=== PATIENT | male | born 1940 | race Caucasian/White ===

== ENCOUNTER 2019-06-12 05:44 | Inpatient (IN) | payer MEDICARE, SELFPAY ==
[2019-06-04 14:00] VITALS: BMI 27.8
[2019-06-12] VITALS (21 sets, daily range): BP systolic 127–155; BP diastolic 66–86; PULSE 79–95; RESP 9–19; TEMP 36.1–37.1; O2SAT 93–100; BMI 27.1
--- NOTE | 2019-06-12 | DI.RAD.S_ITS ---
PROCEDURE: XR CERVICAL SPINE 2V OR 3V INDICATIONS: C3-4, C4-5, C5-6. C6-7 anterior discectomy, ant/post fusio TECHNIQUE: 2 postoperative view(s) of the cervical spine were acquired. COMPARISON: SNO Outside Film, MR, MR CERVICAL SPINE WITHOUT CONTRAST, 03/01/2019, 13:00. SNO Outside Film, CR, XR CERVICAL SPINE 2 OR 3 VIEWS, 02/20/2019, 12:30. FINDINGS: Bones: Postoperative imaging allows best visualization on the lateral view. Anterior cervical fixation fixation devices are evident placed at C3-4, C4-5, C5-6, and C6-7. Facet joint posterior bilateral fixation devices have been placed also at these 4 intervening levels, establishing normal alignment immediately postoperatively. Soft tissues: No prevertebral soft tissue swelling. IMPRESSION: Normal alignment established postoperatively. Both anterior and posterior fixation devices have been placed in expected position from C3-4 through C6-7. Dictated by: Shailesh Minor M.D. on 06/13/2019 at 9:45 Approved by: Shailesh Minor M.D. on 06/13/2019 at 9:48
[2019-06-12] MEDS: LACTATED RINGERS 1,000 ML 42 ML IV ×3 (07:09→13:27)
--- NOTE | 2019-06-12 07:21 | PM.PREOP ---
Pre-operative Note Interval Note History & Physical reviewed/Exam performed by Physician: Yes Changes to H&P: No
[2019-06-12] MEDS: CEFAZOLIN 2 GM/100 ML FROZ.PIGGY IV ×3 (07:55→23:53)
[2019-06-12] MEDS: ACETAMINOPHEN IV 1,000 MG/100 ML VIAL 400 MG IV (08:30)
[2019-06-12] MEDS: SODIUM CHLORIDE 0.9% 1,000 ML, GENTAMICIN 80 MG IRR (08:43)
--- NOTE | 2019-06-12 08:51 | SUR.OPER ---
Prone on padded OR bed, head in foam head support, gel chest rolls, gel pad under knees, pillow under lower legs, toes free of pressure, arms secured at sides with draw sheet. Tape from shoulders to feet. Safety belt at thigh.
--- NOTE | 2019-06-12 08:52 | SUR.OPER ---
Supine on padded OR bed, head on donut, vertical towel roll between scapulae, arm padded and tucked at side, legs uncrossed, safety belt at thigh, tape over blanket over lower legs .
[2019-06-12] MEDS: THROMBIN (RECOMBINANT) 5,000 UNIT VIAL 5000 UNIT TOP (09:04)
--- NOTE | 2019-06-12 12:04 | PM.OP.1 ---
Operative Date/Time/Diagnoses Date of procedure: 06/12/19 Time of procedure: 12:04 Pre-op diagnosis: Cervical stenosis with myelopathy Post-op diagnosis: same Procedure & Clinicians Procedure: C3-4, C4-5, C5-6, C6-7 ACDF with cages C3-4, C4-5, C5-6, C6-7 instrumented posterior fusion Iliac crest bone graft Use of microscope Same procedure as scheduled: Yes Indications: [age] year old male with intractable pain from cervical stenosis. They had failed conservative management and requested operative intervention. Risks and benefits of surgery were discussed and appropriate consents were obtained. Surgeon: Dilshad Hammond Regional Sales Manager: Margaret Fox Anesthesia Type: General Operative Notes Findings: None Closure Type: primary Specimen(s): none sent Prosthetic devices, grafts, tissues, transplants, or devices: DTrax posterior Zachary YOLY-C anterior Applied: catheter Estimated Blood Loss (mL): 10 Procedure in detail: The patient was brought to the operating room and intubated on the stretcher. Time-out was performed. There were then rolled over to the well-padded prone position on chest rolls. Two views of fluoroscopy were taken to confirm our positioning. The neck was then prepped and draped in the standard sterile fashion. Preoperative antibiotics were given. Using fluoroscopy, we localized for planned incisions. Four 8 mm horizontal incisions were made over the lateral masses approximately 2 fingers below our planned surgical sites. We then spread down and opened up the fascia. Then percutaneously placed our Steinmann pin through the soft tissue into the facet joint at C3-4 under fluoroscopic visualization. We used the reamer to decorticate the lateral masses compromising the facet. A trocar was placed over the Steinmann pin into the facet and then the pin was removed. We used a rasp to decorticate the facet joint itself. We then filled the DTrax cage with Primax bone graft and impacted it into the facet joint at C3-4 under fluoroscopic guidance. We then took the lateral mass screw and placed it through the cage and then into the lateral mass for the posterior screw fixation. The senior cyber intelligence analyst was removed and we packed more bone graft down the trocar over the lateral masses. This was done bilaterally. This completed the instrumented posterior fusion at C3-4. We then went to the next levels at C4-5, C5-6, and C6-7. The same procedure was performed with preparation, placement of the cage with bone graft, and placement of the screw for bilateral instrumented posterior fusion at C4-5, C5-6, and C6-7. The wounds were irrigated. The skin was closed and a sterile dressing placed. The patient was then rolled over to the table in the supine position and positioned for the anterior surgery. The arms were tucked and a shoulder roll was placed. The neck and left iliac crest were prepped and draped in the standard sterile fashion. A 3 cm oblique incision was made on the left side of the neck along the skin fold. Bovie was used to split the platysma. We then bluntly dissected a standard anterolateral approach to the precervical fascia. A marker was placed and x-ray taken to confirm our positioning. We then used the Bovie to the subperiosteally lift up the longus colli muscles. Self-retaining retractors were placed. We then placed [place] pins and distracted across the C6-7 disc space. We brought in the microscope. A complete anterior discectomy was performed at C6-7 using a combination of scalpel, curettes, pituitaries, and Kerrison rongeurs. The bur was used to take down the posterior osteophytes as well as decorticate the disc space. We then released the PLL and used the Kerrison to remove any further posterior osteophytes and disc material. At the end a nerve hook could be swept cephalad caudally and out the neural foramen and everything was open. We trialed for our cages. A small stab incision was made over the left iliac crest. We placed a Jamshidi aspiration needle into the iliac crest and aspirated several mL of bone marrow graft. We then took our Zachary LDR YOLY-C cage and packed it with Osteocell, and mixed in the bone marrow aspirate. The cage was then placed into the disc space under fluoroscopic guidance. The 2 locking plates were placed through the cage for fixation. This completed the ACDF at C6-7. We then went to the next levels sequentially from C5-6, C4-5, then C3-4. Again a complete diskectomy was performed including taking down the PLL and posterior osteophytes and disc material. The endplates were prepped with a bur. We trialed and then packed our YOLY-C cage with the bone graft and then placed into the disc space. The locking plates were placed as well. This completed the ACDF at C5-6, C4-5, and C3-4. Final x-rays were taken. The wound was copiously irrigated. There was no bleeding. The carotid was bleeding nicely. The platysma was closed. The superficial skin were closed. A Steri-Strip was placed over the iliac crest incision. Sterile dressings were placed. The patient was then extubated and brought to the recovery room without complication. Complications: none Condition: stable Disposition: PACU Plan for aftercare: Inpatient. Up with therapy. Soft collar for comfort
[2019-06-12] MEDS: HYDROMORPHONE 2 MG INJ 0.25 MG IV ×3 (12:20→13:01)
[2019-06-12] MEDS: hydrOXYzine 50 MG/ML INJ 25 MG IM (12:23)
[2019-06-12] MEDS: ONDANSETRON 4 MG/2 ML INJ IV (12:50)
--- NOTE | 2019-06-12 13:05 | SUR.PHASEI ---
PACU note: Patient pain level increased from a 3/10 to 5/10. Initial assessment of upper extremities showed weak supervisor refractory products bilaterally. Patient complained of sharp shooting pains down bilateral arms. Preop op assessment reported tremors with weakness bilateral upper extremity. Patient complained of bilateral lower extremity feet tingling and numbness right more than left.
[2019-06-12] MEDS: HYDROMORPHONE 2 MG INJ 0.5 MG IV ×2 (13:19→13:31)
[2019-06-12] MEDS: LORazepam 2 MG/ML INJ 0.5 MG IV (13:48)
--- NOTE | 2019-06-12 14:56 | PC.ADMIT ---
Admission Note: Patient arrived from PACU via bed to room 102 at 1445. Awake and oriented x3. Reports pain 7/10 with bilateral spasms to BUEs. Oxygen sats 92-95% on 3L NC. Soft collar in place for comfort. Anterior dressing C/D/I. Posterior dressing D/I, marked bloody drainage - drainage within previously marked margins. Steri-strip C/D/I to left hip. Weak civilian technician bilaterally, weakness to BUEs and BLEs per baseline. Numbness to both feet per baseline. Strong pulses to all [address] extremities. Cohen catheter in place and draining clear yellow urine. Call light within reach. Oriented to room and to call light, bed, TV controls. Bed alarm on. at bedside. The patient,Tima Bar,78 y/o, was given written information regarding hospital policies, unit procedures and contact persons. Patient's smoking status: Former smoker. Vital Signs - 8 hr 06/12/19 12:07 06/12/19 12:12 06/12/19 12:17 Temperature 97.0 F L Pulse Rate 95 H 93 H 93 H Respiratory Rate 12 9 L 10 L Blood Pressure 127/67 136/75 150/80 H Pulse Oximetry 97 99 98 06/12/19 12:22 06/12/19 12:37 06/12/19 12:52 Temperature 98.0 F 97.4 F L Pulse Rate 94 H 92 H 87 Respiratory Rate 11 L 14 15 Blood Pressure 155/85 H 146/84 H 137/72 Pulse Oximetry 99 96 97 06/12/19 13:07 06/12/19 13:32 06/12/19 13:47 Temperature 97.1 F L 97.1 F L 97.5 F L Pulse Rate 86 85 79 Respiratory Rate 12 15 12 Blood Pressure 142/86 H 137/66 136/73 Pulse Oximetry 99 100 97 06/12/19 14:02 06/12/19 14:17 06/12/19 14:30 Temperature 97.2 F L 98.6 F 97.7 F Pulse Rate 80 87 87 Respiratory Rate 12 11 L 12 Blood Pressure 133/69 135/67 145/76 H Pulse Oximetry 100 97 100
--- NOTE | 2019-06-12 14:57 | SUR.PHASEI ---
PACU Transfer note: VSS, O2 sat WNL on 4 l/TELEMARKETER will transfer with O2. Dressings dry and intact. No complaints of nausea, Pain improved 04/09. Transfered to ICU room 102. Verbal report given to Nita Harkins RN. at bedside. Patient awake and alert, responding appropriately.
[2019-06-12] MEDS: LACTATED RINGERS 1,000 ML 125 ML IV ×2 (14:59→22:26)
[2019-06-12] MEDS: HYDROMORPHONE 1 MG INJ 0.5 MG IV (15:01)
[2019-06-12] MEDS: CELECOXIB 200 MG CAPSULE 400 MG PO (15:58)
[2019-06-12] MEDS: HYDROCODONE/ACET 5/325 TABLET 2 TAB PO ×2 (16:01→21:13)
--- NOTE | 2019-06-12 16:06 | PT.IPTN ---
Current Diagnoses Spinal stenosis, cervical region (06/12/19) Surgery Performed Operation Date: 06/12/19 07:45 Actual Procedures p C3-4,C4-5,C5-6,C6-7 Anterior discectomy & Ant/Post fusion with bone graft - Dilshad Hammond MD Physical Therapy Treatment Note M3 PT-IP Subjective Start: 06/12/19 16:05 Freq: NEEDED Status: Active Protocol: Document 06/12/19 16:05 AB (Rec: 06/12/19 16:06 AB [id number]) Subjective Physical Therapy Visit Type Notes checked with nursing and stated that pt is not ready for PT. nurse stated that pt is still drowsy and has significant amount of pain 7/ 10 at this time and not ready for PT. will f/u tomorrow.
--- NOTE | 2019-06-12 16:11 | PC.NURSE ---
Addendum entered by Gianna Wan R.N. 06/12/19 22:17: Pt able to feed himself some food, ate 50%. Has tremors in arms. Pt reports lack of coordination. Addendum entered by Gianna Wan R.N. 06/12/19 19:30: Pt able to lift each arm off bed and hold off bed. Bilateral legs are weak also. Dorsi/plantar flexion is weak bilaterally with slightly weaker on left. Pt reports he uses a cane at home 20% of the time. Did not get pt OOB. Original Note: johana note 15:45- awakened pt for assessment. Pt reports that he has pain in hands, different than pre-op. Pt says pre-op pain was shooting pains down fingers, but now pain is almost constant and the whole hand hurts, even the soft tissues. Fingers move to close around lencho's hand, but no appreciable strength.
[2019-06-12] MEDS: GABAPENTIN 600 MG TABLET PO (17:54)
[2019-06-12] MEDS: DEXAMETHASONE 4 MG/ML VIAL IV ×2 (17:57→23:53)
[2019-06-12] MEDS: SENNOSIDES 8.6 MG TABLET 17.2 MG PO (21:24)
[2019-06-12] MEDS: GABAPENTIN 300 MG CAPSULE PO (21:24)
[2019-06-12] MEDS: LISINOPRIL 10 MG TABLET PO (21:24)
[2019-06-12] MEDS: DOCUSATE 100 MG CAPSULE PO (21:24)
[2019-06-12] MEDS: CELECOXIB 200 MG CAPSULE PO (21:26)
[2019-06-12] MEDS: NIFEdipine 30 MG TAB ER PO (21:26)
[2019-06-12] MEDS: LOVASTATIN 20 MG TABLET 40 MG PO (21:27)
[2019-06-13] VITALS: BP 134/68; PULSE 75; RESP 18; TEMP 37.1; O2SAT 97
[2019-06-13] MEDS: HYDROMORPHONE 1 MG INJ 0.5 MG IV (00:05)
[2019-06-13 04:59] VITALS: BP 112/60; PULSE 71; RESP 18; TEMP 37.1; O2SAT 95
[2019-06-13] MEDS: HYDROCODONE/ACET 5/325 TABLET 2 TAB PO ×4 (06:17→20:41)
[2019-06-13] MEDS: DEXAMETHASONE 4 MG/ML VIAL IV ×2 (06:18→11:57)
[2019-06-13 07:33] VITALS: BP 111/81; PULSE 74; RESP 18; TEMP 37.2; O2SAT 97
--- NOTE | 2019-06-13 07:56 | PM.PNPO.1 ---
Subjective Date Patient Seen: 06/13/19 Time Patient Seen: 07:56 Interval history: He is doing better today than yesterday. Minimal discomfort in the neck. Yesterday was having severe stabbing pains in the palms of both hands. Now that is intermittent and into the radial volar forearm mostly and lessening. Exam Vital Signs (past 8 hours): - 06/13/19 00:00 06/13/19 04:59 06/13/19 07:33 Temperature 98.8 F 98.7 F 99 F Pulse Rate 75 71 74 Respiratory Rate 18 18 18 Blood Pressure 134/68 112/60 111/81 Pulse Oximetry 97 95 97 Oxygen Delivery Method Nasal Cannula Oxygen Flow Rate 3 Const Orientation: alert and oriented x3 Back/Spine/Pelvis Other: Anterior dressing CDI. Posterior dressing moderate dry drainage. 5/5 motor both upper extremities except for 4/5 bilateral intrinsics and 3/5 bilateral senior program analyst Objective Labs Labs: Laboratory Results - last 24 hr 06/12/19 14:53 Nasal Screen MRSA (PCR) Negative for mrsa Assessment & Plan Post-op Postoperative Procedures Operation Date: 06/12/19 07:45 Actual Procedures Side Surgeon p C3-4,C4-5,C5-6,C6-7 Anterior discectomy & Ant/Post fusion with bone graft Dilshad Hammond MD He is doing much better than yesterday afternoon. Continue with the IV steroids today. I think this mostly was probably stretch related from the distraction across the cervical spine at surgery. As long as this continues to calm down, anticipate discharge home in the next 1-2 days. Mobilize with physical therapy. Quality VTE Deep Vein Thrombosis/Pulmonary Embolism Present on Admission: No
[2019-06-13] MEDS: DOCUSATE 100 MG CAPSULE PO ×2 (08:16→20:32)
[2019-06-13] MEDS: CELECOXIB 200 MG CAPSULE PO ×2 (08:16→20:43)
--- NOTE | 2019-06-13 09:20 | CM.DANOTE ---
Addendum entered by Rosenda Wilson LPN 06/13/19 10:51: Case discussed in Rounds: confirmed PT/OT and ART PROFESSOR will see pt today. Met then with pt as per plan. Introduced self and role. He is found sitting up in bedside chair having just completed PT session with Monico. Monico confirms that he is doing well towards his plan for a d/c home. Pt will use a FWW which he has and will be working again in stairs with PT. Pt says he is still having some sharp pains in his UEs but that the symptoms are lessening. He confirms his plan to d/c home with his ; says Dr. Hammond says this may be tomorrow if he continues to do well. Assured him that he is well covered by Medicare until he is stable to leave the hospital setting. Will be following. Original Note: Discharge Planning/Care Management DCP: assessment: Case received, EMR reviewed. Pt is a 78 year old male who admitted yesterday for a planned spinal surgery: C3>C7 anterior/posterior cervical fusion. Surgeon: Dr. Hammond [facility] PCP: Dr. Swenson Admission status: INPT PT attempted to see pt yesterday but he was unable to participate. Note pt indicated in his preop plan that he hopes to d/c home with his 's support. Currently he is on IV steroids to help in management of his post op symptoms. P: discuss in Team Rounds. Check on ? of OT involvement. Met with pt and his for discussion of d/c issues and options. CM Discharge Assessment Start: 06/13/19 09:19 Freq: Status: Active Protocol: Document 06/13/19 09:20 ITV (Rec: 06/13/19 09:20 ITV [id number]) Discharge Planning Assessment Advance Directives? Yes Advance Directives on File No History Provided By Medical Record Prior Living Arrangements House Household Members spouse Review Status In Process Pre-Anesthesia Assessment Start: 06/04/19 14:00 Freq: Status: Complete Protocol: Document 06/04/19 14:00 CAB (Rec: 06/04/19 14:39 CAB [id number]) Pre-Anesthesia Assessment Patient Also Known As (DAVID) Osbaldo Diagnostic Results EKG Comment Outside labs/EKG scanned to record Primary Care Provider Zachariah Swenson Medical Clearance Received Yes Seen Specialist in Last 12 Months Yes Specialist Seen Orthopedist Comment PCP pre-op clearance 04/25/19 scanned to record Primary Language Ukrainian Lamp Shades Supervisor Required No Height 180.34 cm Weight 90.718 kg Body Mass Index (BMI) 27.8 Hearing Ability Hard of Hearing Visual Assist Glasses Dentition Type Teeth, Natural Present Dental Implants Barriers to Learning None Comment Left ear hearing impaired Hx Anesthesia Reactions No Hx Family Anesthesia Reaction No Hx Malignant Hyperthermia No Hx Blood Transfusions No Anesthesia Review Requested No alcohol intake current alcohol intake frequency 0-2 drinks per day Smoking Status Former smoker Tobacco type cigarettes cigars how long ago did patient quit smoking Quit 40 years ago Substance Use Type does not use Pain Present Pain Reported Musculoskeletal Symptoms Abnormal Gait Back Pain Difficulty Walking Joint Pain Neck Pain History of Falling (Recent or History of No ) Patient is completely paralyzed or No completely immobile Prosthesis or Orthotic Device Cane Mental Status Oriented to own ability Is patient on oxygen? No Does patient have MULLIGAN/SOB No Hx Sleep Apnea No Currently Taking a Beta Wood No Can You Climb a Flight of Stairs Without Yes SOB Hx Chest Pain No Hx SOB No Hx Syncope or Dizziness No Anti-Coagulant Therapy No Has a [employer] Officer No Cardiac Testing No Hx Pacemaker/ICD No Pacemaker Rep Required? No Cardiac Clearance Received Not Applicable Diet Type At Home Regular dysphagia No Bladder Pattern Nocturia Urinary Catheter Present No Hx Urinary Self Catheterization No Diabetes No Hx Drug Resistant Organism No Presence of External or Internal Medical Yes: Lumbar hardware Devices Have you traveled outside the [facility] in the last 30 days? Comment Evelyn travel 05/26-05/30 Marital Status Lives With spouse Prior Living Arrangements House Number of Floors (Floors) 3 or More Floors Support System Spouse Does the Patient Have Assistance After Yes Surgery Patient Discharge Plan Description Return Home Comment Pt advised 2-3 day length of stay per surgeon's office Feels Safe in Current Environment Yes Been Physically Hurt or Threatened By a No Person in Current Environment Do you have thoughts of harming yourself None or others? Are you currently considering suicide? No Do you have a plan to hurt yourself or No Plan others? Do You Have Any Spiritual Beliefs That No May Affect Your HC Choices? Do You Have Any Cultural Practices That No May Affect Your HC Choices? Who Can We Speak to About Patient's Care Family, friends Identifying Code for Release of Patient Declines to issue Information Health Care Proxy/Next of Kin Nakia () Health Care Proxy Emergency Contact Name Nakia () Emergency Contact Advance Directives? Yes Advance Directives on File No Requested Patient Bring Advanced Yes Directives DOS PAC Instructions Durable medical equipment Medications to take/avoid Nasal antibiotic No ETOH/petroleum product on skin DOS NPO Post-op transportation Pre-surgical wash Sturdy shoes/comfortable clothes Do not bring valuables and remove jewelry
--- NOTE | 2019-06-13 10:22 | PC.NURSE ---
PT WORKING WITH PT AT PRESENT, [facility] REMOVED AND PT HAS NOT VOIDED OF YET- PT PREFERS WEARING SOFT COLLAR AND DRESSING TO ANTERIOR NECK CLEAN DRY AND INTACT - POSTERIOR NECK HAS MARKED SHADOW DRAINAGE THAT HAS NOT INCREASED IN 2 SHIFTS DEHYDROGENATION OPERATOR HEAD WEAK BUT EQUAL AND REPORTS PINS AND NEEDLES BILAT RIGHT > LEFT UPPER EXTREMITIES- AND BILAT LOWER EXTREMITIES + CMS BUT AGAIN, HE REPORTS SPASMS AND FUZZINESS BILAT LOWER EXTREMITIES AND REPORTS THIS PRE-OP COMPLAINTS WELL- DR. FLORENTINO AWARE- PAIN WELL CONTROLLED THIS AM ON PO PAIN RX
--- NOTE | 2019-06-13 11:58 | OT.IP.EVAL ---
Current Diagnoses Spinal stenosis, cervical region (06/12/19) Surgery Performed Operation Date: 06/12/19 07:45 Actual Procedures p C3-4,C4-5,C5-6,C6-7 Anterior discectomy & Ant/Post fusion with bone graft - Dilshad Hammond MD Past Medical History (Last Updated 06/04/19 @ 14:34 by Nela Pollard, RN) BPH with obstruction/lower urinary tract symptoms (Acute) Bursitis (Acute) Essential tremor (Acute) Former smoker (Acute) HLD (hyperlipidemia) (Acute) HTN (hypertension) (Acute) Hearing loss (Acute) History of thromboembolism (Acute) Insomnia (Acute) Neuropathy (Acute) Pulmonary embolism (Acute) TIA (transient ischemic attack) (Acute) Surgical History (Last Updated 06/04/19 @ 14:34 by Nela Pollard RN) History of colonoscopy (Acute) Hx of hernia repair (Acute) Hx of transurethral resection of prostate (Acute) S/P lumbar fusion (Acute 08/02/17) Occupational Therapy Inpatient Evaluation/Re-Eval M1 PT/OT-IP Prior Functional Status Start: 06/12/19 16:05 Freq: NEEDED Status: Active Protocol: Document 06/13/19 11:58 PJM (Rec: 06/13/19 16:12 PJ [id number]) Medical Review Prior Functional Status Medical History Reviewed Yes Diet/Fluid Consistency Regular Communication WNL Mobility and Gait Pt states he is independent with mobility at home and in community, using SPC 10% of the time. He states he does have difficulty walking >30 mins due to hip pain, numbness of B feet and hands. Activities of Daily Living and IADL's Pt states he was independent with all self care including showering, except his assisted with buttoning and cutting food at times. Pt reports dropping items out of his R dominant hand recently. His does all IADLS, except pt still drives when feeling well. Prior Functional Level (Other details) Supportive, capable can provide 24 hr assist at d/c. Social History Household Members spouse Living Arrangements House Number of Floors (Floors) Two Floors Number of Stairs To Enter/Railing? single flight of stairs (12 steps total 4+8 with a landing in between) , L railing Home Environment High Toilet Walk in Shower Home Equipment Front Wheel Walker Straight Cane Shower Seat with Backrest Hand Held Shower Grab Bars In Shower Employment Status Retired Additional Social History Comment Pt lives with his Nydia. They resides in [place] and [place] throughout the year. He usually stays 8 months in [place] and 4 months in [place]. He expects to return to [place] on Aug 27. Pt lives on 2nd floor but able to stay on main after surgery if needed. M2 OT-IP Current Condition Start: 06/13/19 15:45 Freq: Status: Active Protocol: Document 06/13/19 11:58 PJM (Rec: 06/13/19 16:12 PJM [email or web address]) Occupational Therapy Current Condition Current Condition Evaluation Date 06/13/19 Treatment Diagnosis decreased B hand function,self care,mobility s/p C3-7 ant/ posterior fusion Diagnosis Onset Date 06/12/19 Post Operative Precautions Cervical Spine Precautions Soft Collar for Comfort No Heavy Lifting Log Roll M3 OT- IP Subjective and Pain Start: 06/13/19 15:45 Freq: Status: Active Protocol: Document 06/13/19 11:58 PJM (Rec: 06/13/19 16:12 PJM [email or web address]) OT- Subjective Occupational Therapy Visit Type Type Initial Evaluation Visit Start Time 10:54 Visit Stop Time 11:58 Total Visit Minutes 64 Notes here for education this session Occupational Therapy Visit Comments Patient Comments I want to get my hands stronger, especially my right one so I won't drop things. Patient/Caregiver Goals to improve hand function, go home OT Pain Assessment Pain When Pain Assessed After Treatment Pain Present Pain Present Denied Pain M4 OT- IP ADL's Start: 06/13/19 15:45 Freq: Status: Active Protocol: Document 06/13/19 11:58 PJM (Rec: 06/13/19 16:12 PJ [id number]) OT [id number] General Evaluation Self-Feeding Ability Standby Assistance Areas Needing Assistance Cutting Food Opening Containers Devices Self-Feeding Devices Adapted Utensil Comments OT Self-Feeding Comments provided built up foam handle for eating utensils and educated pt/ re: rocker knives OT ADL-Grooming General Evaluation Grooming Ability Standby Assistance Areas Needing Assistance Face Washing OT ADL-Oral Care Comments Oral Care Comments did not occur, provided built up handle for toothbrush OT ADL-Dressing General Eval Lower Body Dressing Ability Maximum Assistance Areas Needing Assistance Pants/Shorts Socks Shoes Assistive Devices Dressing Assistive Devices Button Hook Comments OT Dressing Comments provided education to pt/ re: button hook and zipper pull device OT ADL-Toileting Comments OT Toileting Comments did not occur this session, to be assessed OT ADL-Bathing Comments OT Bathing Comments to be assessed as activity tolerance improves; provided education re: gordonposteve rehman M5 OT- IP IADL's Start: 06/13/19 15:45 Freq: Status: Active Protocol: Document 06/13/19 11:58 PJM (Rec: 06/13/19 16:12 PJM [email or web address]) OT-Instrumental Activities of Daily Living Deficits IADL Deficits Identified Deficits Home Safety Awareness Awareness of Need for Assistance at Home Good Awareness Ability to Problem Solve Emergency Able to Problem Solve Situations Medication Management Medication Management No Deficits Identified Money Management Money Management No Deficits Identified Meal Preparation Meal Preparation Caregiver Provides Assist Histology Manager Histology Manager Caregiver Provides Assist Driving Driving Caregiver Provides Assist M6 OT- IP Functional Cognition Start: 06/13/19 15:45 Freq: Status: Active Protocol: Document 06/13/19 11:58 PJM (Rec: 06/13/19 16:12 PJM [email or web address]) Cognitive Factors Limiting Selfcare Function Cognitive Ability Level of Alertness Alert Patient Orientation Name Age Birthday Month Date Year Day of Week Place Situation Attention Span Ability Capable of Focused Attention Capable of Sustained Attention Ability to Follow Commands Able to Follow One Step Commands Cognitive Comments Cognitive Assessment Comments cognition appears WFL OT- Vision and Hearing OT- Hearing Assessment OT- Hearing Assessment WFL OT- Vision Assessment Visual Acuity Glasses For Reading Vision Assessment Comments Pt denies any recent vision changes M7 OT- IP Mobility and Balance Start: 06/13/19 15:45 Freq: Status: Active Protocol: Document 06/13/19 11:58 PJM (Rec: 06/13/19 16:12 PJM [email or web address]) OT-Transfer Assessment Comments Mobility Comments see P.T. notes, pt up in recliner this session OT- Gait Assessment Comments Gait Ability Comments see P.T. notes M8 OT- IP Objective Assessments Start: 06/13/19 15:45 Freq: Status: Active Protocol: Document 06/13/19 11:58 PJM (Rec: 06/13/19 16:12 PJM [id number]) OT Gross Range of Motion Upper Extremity Range of Motion Assessment Bilaterally Impaired ROM Impairments B hand stiffness noted, proximal AROM WFL within C spine precautions R hand: 50% composite active flexion, 80% passive, extension WFL, nodules noted on DIPS, can oppose thumb to side of digits 2,3,4 L hand: 90% composite flexion, extension WFL, thumb opposition WFL Began education with pt's re: PROM ex for R hand. OT Strength Upper Extremity Strength Assessment Bilaterally Impaired Hand R 3-/5, L 3+/5 finger flexion Hand Targeting Acquisition Officer Strength Hand Dominance Right Comments Strength Comments intrinsic atrophy of hypothenar> thenar emminence noted in R>L hand cloth cutting machine operator/pinch strength measurements to follow OT- Coordination Assessment Upper Extremity Finger Tapping Test Left UE Impaired Comments Coordination Comments B hand dexterity deficits noted, R>L due to weakness and joint stiffness OT-Muscle Tone Assessment Muscle Tone WNL Yes OT Sensation Assessment Comments Summary Comments Pt detects and localizes lt touch In B UE's hands. Edema Edema Present Edema Comments R>L hand in min + to mod range , provided education to pt/ re: elevation of B hands and fist pumping 10x every hour while awake M9 OT- IP Assessment and Plan Start: 06/13/19 15:45 Freq: Status: Active Protocol: Document 06/13/19 11:58 PJM (Rec: 06/13/19 16:12 PJM [email or web address]) OT Summary Assessment and Plan Potential Rehabilitation Potential Good Analytic Complexity at Evaluation Moderate Summary OT Impairments Strength Coordination Functional Mobility Self-Feeding Grooming Dressing Toileting Bathing Toilet Transfers Shower Transfers Assessment Summary Moderate complexity OT assessment completed due to 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 Additional time needed for assessment of hand function. Pt presents with performance deficits in B hand strength and dexterity, self feeding (pt dropping utensil and requires built up handles), grooming, dressing, bathing, toileting and all functional mobility/transfers. Began education with pt/ re: edema control techniques and for B hands, and AROM/PROM ex for R (dominant) hand. Pt will benefit from 1-2 additional OT visits to address the goals below. Anticipate pt will d/c home with 24 hr assist from capable when medically stable and clears P.T. Pt may benefit from out pt hand therapy to increase AROM, strength, dexterity when MD permits. Goals Self-Feeding Goal Independent Adapted Utensil Grooming Goal Independent Toothbrush with Handle Build Up Dressing Goal Standby Assistance Button Hook Toileting Goal Standby Assistance Bathing Goal Standby Assistance Grab Bars Toilet Transfer Goal Standby Assistance Shower Transfer Goal Standby Assistance Walk-in Shower Shower Chair Grab Bars Patient/Caregiver Education Goal Demonstrate Post-Op Precautions Demonstrate Energy Conservation and Pacing Caregiver Independent Assisting Patient OT-Other Goals Pt to correctly demonstrate HEP of B hand AROM, PROM, strengthening exercises. Days to Meet Goals 2 Frequency of Treatment Frequency Of Treatment Once a Day Treatment Plan OT Treatment Plan ADL Training Functional Mobility Therapeutic Exercises Patient/Family Education Discharge Planning Discharge Recommendations OT Discharge Recommendations Home with Assistance
--- NOTE | 2019-06-13 11:59 | PT.IIE ---
Current Diagnoses Spinal stenosis, cervical region (06/12/19) Surgery Performed Operation Date: 06/12/19 07:45 Actual Procedures p C3-4,C4-5,C5-6,C6-7 Anterior discectomy & Ant/Post fusion with bone graft - Dilshad Hammond MD Surgical History (Last Updated 06/04/19 @ 14:34 by Nela Pollard RN) History of colonoscopy (Acute) Hx of hernia repair (Acute) Hx of transurethral resection of prostate (Acute) S/P lumbar fusion (Acute 08/02/17) Medical History (Last Updated 06/04/19 @ 14:34 by Nela Pollard RN) BPH with obstruction/lower urinary tract symptoms (Acute) Bursitis (Acute) Essential tremor (Acute) Former smoker (Acute) HLD (hyperlipidemia) (Acute) HTN (hypertension) (Acute) Hearing loss (Acute) History of thromboembolism (Acute) Insomnia (Acute) Neuropathy (Acute) Pulmonary embolism (Acute) TIA (transient ischemic attack) (Acute) Physical Therapy Inpatient Evaluation/Re-Eval M1 PT/OT-IP Prior Functional Status Start: 06/12/19 16:05 Freq: NEEDED Status: Active Protocol: Document 06/13/19 10:20 (Rec: 06/13/19 11:59 [id number]) Medical Review Prior Functional Status Medical History Reviewed Yes Diet/Fluid Consistency Regular Communication Able to make needs known, no deficits noted. Mobility and Gait Independent at home and community. Used SPC 10% of the time. But he does have difficulty walking >30 mins due to hip pain, numbness of B feet and hands. Activities of Daily Living and IADL's independent with ADLs and IADLs but he did have sporadic weakness on construction equipment mechanic strength that he used both hands to hold objects. Social History Household Members spouse Living Arrangements House Number of Floors (Floors) Two Floors Number of Stairs To Enter/Railing? single flight of stairs (12 steps total 4&8 with a landing in between) , L railing Home Environment High Toilet Home Equipment Front Wheel Walker Straight Cane Shower Seat with Backrest Grab Bars In Shower Employment Status Retired Additional Social History Comment Pt lives with his Nydia. They resides [place] and [facility] throughout the year. He usually stays 8 months in [place] and 4 monhts in [facility]. He expects to return to [place] on Aug 27. Pt lives on 2 nd floor but able to stay on main after surgery if needed. M2 PT-IP Current Condition Start: 06/12/19 16:05 Freq: NEEDED Status: Active Protocol: Document 06/13/19 10:20 HH (Rec: 06/13/19 11:59 [id number]) Physical Therapy Current Condition Current Condition Evaluation Date 06/13/19 Treatment Diagnosis C3-C7 ant & post fusion, B feet numbness, diffculty in walking Onset Date 06/12/19 Precautions Cervical Spine Precautions Soft Collar for Comfort Rigid Collar No Heavy Lifting Log Roll Weight Bearing Status Weight Bearing Status Weight Bear as Tolerated M3 PT-IP Subjective Start: 06/12/19 16:05 Freq: NEEDED Status: Active Protocol: Document 06/13/19 10:20 HH (Rec: 06/13/19 11:59 [id number]) Subjective Physical Therapy Visit Type Type Initial Evaluation Visit Start Time 10:20 Visit Stop Time 10:45 Total Visit Minutes 25 Number of MECHANIC AND WELDER Visits 0 Physical Therapy Visit Comments Patient Comments Pt agreeable to mobilize with PT Patient Goals To return home with with Therapy Pain Assessment Pain Present Pain Present Denied Pain M4 PT-IP Mobility and Gait Start: 06/12/19 16:05 Freq: NEEDED Status: Active Protocol: Document 06/13/19 10:20 HH (Rec: 06/13/19 11:59 [id number]) PT-Transfer Assessment Sit to and From Stand Sit to and from Stand Contact Guard Assistance 1 Person Assistance Use of Upper Extremities Equipment Transfer Assistive Device None Gait Belt Front Wheeled Walker Orthotic/Prosthetic Devices or Brace: No Transfers Transfer Destination Chair Transfer Technique Stand Step Pivot Transfer Ability Level of Assist Contact Guard Assistance Use of Upper Extremities Comments Mobility Comments Pt was in chair upon assessment. Denies pain and discomfort but he reported his numbness on B UEs and feet has been slightly diminished but tremors stays still. B forearm and hands are both sensitive to touch. Pt stood up from chair and amb to hallway with FWW for first 150 ft with SBA. He was then able to amb another 100 ft without FWW but CGA. Pt appears normal for balance and gait. Gait Assessment Gait Gait Assistance Required: Standby Assistance Contact Guard Assist Distance (Feet) 250 Assistive Devices Assistive Device None Gait Belt Front Wheeled Walker Orthotic/Prosthetic Devices or Brace: Yes Gait Deviations General Gait Pattern Decreased Stride Length Decreased Feet Clearance Factors Limiting Gait Function Factors Limiting Gait Function Decreased Activity Tolerance Decreased Strength Limited Range of Motion Comments Gait Comments see mobility comments Stair Climbing Assessment Evaluation Level of Assist On Stairs Contact Guard Assistance Devices Stair Climbing Assistive Devices Left Railing Technique/Endurance Stair Climbing Direction Ascend and Descend Stair Climbing Technique Step to Step Number of Steps Climbed 7 Query Text: Stair Climbing Set # Repetitions (reps) 1 Comments Stair Climbing Comments step to with L railing to ascend side step with R railing to descend PT-Balance Assessment Sitting Balance and Reactions Static Sitting Balance Ability Normal Dynamic Sitting Balance Ability Normal Standing Balance and Reactions Static Standing Balance Ability Good Dynamic Standing Balance Ability Good M5 PT-IP Objective Assessments Start: 06/12/19 16:05 Freq: NEEDED Status: Active Protocol: Document 06/13/19 10:20 (Rec: 06/13/19 11:59 [id number]) Orientation Orientation/Cognition Level of Alertness Alert Orientation Name Age Birthday Month Date Year Day of Week Place Situation Language Function Ability No Deficits Noted Safety Awareness Understands Safety Issues Memory Description No Deficits Noted Gross Range of Motion Upper Extremity ROM Assessment Within Functional Limits Lower Extremity ROM Assessment Within Functional Limits Strength Upper Extremity Strength Assessment Bilaterally Impaired Lower Extremity Strength Assessment Within Functional Limits Comments Strength Comments 3/5 construction equipment mechanic strength and wrist flex/ext Coordination Assessment Gross Coordination Gross Coordination WNL Sensation Assessment Sensation Gross Sensation Right UE Impaired Left UE Impaired Right LE Impaired Left LE Impaired Light Touch Impaired Proprioception (Position) Impaired Sensation Description Numbness Tingling Pain Muscle Tone Muscle Tone WNL Yes M6 PT-IP Treatment Start: 06/12/19 16:05 Freq: NEEDED Status: Active Protocol: Document 06/13/19 10:20 (Rec: 06/13/19 11:59 [id number]) Physical Therapy Treatment Education Education Provided Precautions Safety M7 PT-IP Assessment and Plan Start: 06/12/19 16:05 Freq: NEEDED Status: Active Protocol: Document 06/13/19 10:20 (Rec: 06/13/19 11:59 [id number]) PT Summary Assessment and Plan Potential Rehabilitation Potential Excellent Status of Condition at Evaluation Stable Summary Impairments Pain ROM Strength Bed Mobility Transfers Gait Activity Tolerance Assessment Summary Pt is a low complexity with C3 -C7 ant/post fusion POD #2. Upon assessment, pt appears close to PLOF who was able to amb without AD and negotiate stairs with L rail. Pt cont c/ o numbness at B hands and feet but denies any hip pain. Pt expects to stay one more night for cont monitoring since this is extensive cervical surgery. Expects pt to be d/c home with spouse's assistance as needed. Goals Bed Mobility Goal Independent Transfer Goal Independent Gait Goal Independent Gait Distance 500 Other Goals 12 steps with L rail SBA Days to Meet Goals 3 Frequency of Treatment Frequency Of Treatment Twice a Day Treatment Plan Physical Therapy Treatment Plan Bed Mobility Training Transfer Training Gait Training Therapeutic Exercise Balance Retraining Post Op Education Discharge Planning Hot or Cold Pack Neuromuscular Re-ed Other Recommendations and Next Treatment bed mob, transfer and gait Focus training as charles without FWW stair training with L rail Recommendations To Nursing Amount of Assist Needed Standby Assistance Discharge Recommendations PT Discharge Recommendations Home with Assistance
--- NOTE | 2019-06-13 14:15 | PT.IPTN ---
Current Diagnoses Spinal stenosis, cervical region (06/12/19) Surgery Performed Operation Date: 06/12/19 07:45 Actual Procedures p C3-4,C4-5,C5-6,C6-7 Anterior discectomy & Ant/Post fusion with bone graft - Dilshad Hammond MD Physical Therapy Treatment Note M2 PT-IP Current Condition Start: 06/12/19 16:05 Freq: NEEDED Status: Active Protocol: Document 06/13/19 10:20 HH (Rec: 06/13/19 11:59 HH [id number]) Physical Therapy Current Condition Current Condition Evaluation Date 06/13/19 Treatment Diagnosis C3-C7 ant & post fusion, B feet numbness, diffculty in walking Onset Date 06/12/19 Precautions Cervical Spine Precautions Soft Collar for Comfort Rigid Collar No Heavy Lifting Log Roll Weight Bearing Status Weight Bearing Status Weight Bear as Tolerated M3 PT-IP Subjective Start: 06/12/19 16:05 Freq: NEEDED Status: Active Protocol: Document 06/13/19 14:20 GGD (Rec: 06/13/19 16:10 GGD [id number]) Subjective Physical Therapy Visit Type Type Treatment Note Visit Start Time 13:54 Visit Stop Time 14:18 Total Visit Minutes 24 Number of COMMUNITY RESOURCE OFFICER Visits 1 Physical Therapy Visit Comments Patient Comments pt states he is doing better. Therapy Pain Assessment Pain When Pain Assessed At Rest Pain Present Pain Present Pain Reported Location hands\arms Intensity 5 Scale Used Numeric (1 - 10) M4 PT-IP Mobility and Gait Start: 06/12/19 16:05 Freq: NEEDED Status: Active Protocol: Document 06/13/19 14:20 GGD (Rec: 06/13/19 16:10 GGD [id number]) PT-Bed Mobility Assessment Rolling Type of Rolling Log Rolling Level of Assist Contact Guard Assistance Supine to Sit Supine to Sit Contact Guard Assistance Sit to Supine Sit to Supine Contact Guard Assistance Scooting Scooting to Edge of Bed Standby Assistance PT-Transfer Assessment Sit to and From Stand Sit to and from Stand Contact Guard Assistance 1 Person Assistance Use of Upper Extremities Equipment Transfer Assistive Device None Gait Belt Orthotic/Prosthetic Devices or Brace: No Transfers Transfer Destination Bed Transfer Ability Level of Assist Contact Guard Assistance Use of Upper Extremities Comments Mobility Comments Pt needed min cues for full log roll. Gait Assessment Gait Gait Assistance Required: Standby Assistance Contact Guard Assist Distance (Feet) 400 Assistive Devices Assistive Device None Gait Belt Orthotic/Prosthetic Devices or Brace: Yes Gait Deviations General Gait Pattern Decreased Stride Length Decreased Feet Clearance Factors Limiting Gait Function Factors Limiting Gait Function Decreased Activity Tolerance Decreased Strength Limited Range of Motion Stair Climbing Assessment Evaluation Level of Assist On Stairs Contact Guard Assistance Devices Stair Climbing Assistive Devices Left Railing Technique/Endurance Stair Climbing Direction Ascend and Descend Stair Climbing Technique Step to Step Number of Steps Climbed 7 Stair Climbing Set # Repetitions (reps) 1 M5 PT-IP Objective Assessments Start: 06/12/19 16:05 Freq: NEEDED Status: Active Protocol: Document 06/13/19 10:20 HH (Rec: 06/13/19 11:59 HH [id number]) Orientation Orientation/Cognition Level of Alertness Alert Orientation Name Age Birthday Month Date Year Day of Week Place Situation Language Function Ability No Deficits Noted Safety Awareness Understands Safety Issues Memory Description No Deficits Noted Gross Range of Motion Upper Extremity ROM Assessment Within Functional Limits Lower Extremity ROM Assessment Within Functional Limits Strength Upper Extremity Strength Assessment Bilaterally Impaired Lower Extremity Strength Assessment Within Functional Limits Comments Strength Comments 3/5 manager ethics strength and wrist flex/ext Coordination Assessment Gross Coordination Gross Coordination WNL Sensation Assessment Sensation Gross Sensation Right UE Impaired Left UE Impaired Right LE Impaired Left LE Impaired Light Touch Impaired Proprioception (Position) Impaired Sensation Description Numbness Tingling Pain Muscle Tone Muscle Tone WNL Yes M6 PT-IP Treatment Start: 06/12/19 16:05 Freq: NEEDED Status: Active Protocol: Document 06/13/19 14:20 GGD (Rec: 06/13/19 16:10 GGD [id number]) Physical Therapy Treatment Education Education Provided Precautions Safety M7 PT-IP Assessment and Plan Start: 06/12/19 16:05 Freq: NEEDED Status: Active Protocol: Document 06/13/19 14:20 GGD (Rec: 06/13/19 16:10 GGD [id number]) PT Summary Assessment and Plan Summary Assessment Summary Pt improving with mobility. He need cues for full log roll. He improved stability with gait and was stable without AD . Treatment Plan Physical Therapy Treatment Plan Bed Mobility Training Transfer Training Gait Training Therapeutic Exercise Balance Retraining Post Op Education Discharge Planning Hot or Cold Pack Neuromuscular Re-ed Recommendations To Nursing Amount of Assist Needed Standby Assistance Discharge Recommendations PT Discharge Recommendations Home with Assistance
[2019-06-13 15:30] VITALS: BP 131/62; PULSE 81; RESP 18; TEMP 36.8; O2SAT 95
--- NOTE | 2019-06-13 18:02 | ST.IPSCREEN ---
Pt screened for voice and swallowing following ACDF surgery. No overt s/sx of a vocal quality disorder or swallowing difficulties. Pt reports he feels fine relative to his swallow and voice. Literature provided to pt.
[2019-06-13 19:30] VITALS: BP 124/62; PULSE 72; RESP 18; TEMP 36.8; O2SAT 95
[2019-06-13 20:31] VITALS: BP 124/62; PULSE 72
[2019-06-13] MEDS: LISINOPRIL 10 MG TABLET PO (20:31)
[2019-06-13] MEDS: GABAPENTIN 300 MG CAPSULE PO (20:31)
[2019-06-13] MEDS: SENNOSIDES 8.6 MG TABLET 17.2 MG PO (20:32)
[2019-06-13] MEDS: NIFEdipine 30 MG TAB ER PO (20:42)
[2019-06-13] MEDS: LOVASTATIN 20 MG TABLET 40 MG PO (20:43)
[2019-06-14 00:50] VITALS: BP 138/73; PULSE 78; RESP 18; TEMP 36.7; O2SAT 97
[2019-06-14] MEDS: HYDROCODONE/ACET 5/325 TABLET 2 TAB PO ×2 (01:09→09:36)
[2019-06-14 07:30] VITALS: BP 150/73; PULSE 70; RESP 16; TEMP 36.3; O2SAT 96
--- NOTE | 2019-06-14 07:41 | P.DS_ITS ---
History of Present Illness Date Patient Seen: 06/14/19 Time Patient Seen: 07:39 Chief complaint: Cervical Fusion Anterior/Posterior Narrative: 78-year-old male with progressive cervical myelopathy. Primarily pain numbness weakness into the hands Discharge Providers Date of admission: 06/12/19 05:44 Discharge Date: 06/14/19 Primary care physician: Zachariah Swenson MD Consults: 06/12/19 14:50 Consult to Occupational Therapy Evaluate & Treat Comment: Physician Instructions: Evaluate and treat Consult to Physical Therapy Evaluate & Treat Comment: Physician Instructions: Evaluate and Treat Consult to Speech Therapy Evaluate & Treat Comment: s/p 4 level ACDF Physician Instructions: Evaluate and treat Discharge provider: Dilshad Hammond MD Summary Discharge Diagnosis: Cervical myelopathy Hospital Course: He is brought to the operating room on 06/12/2019 where he underwent a C3 through 7 anterior diskectomy and anterior and posterior instrumented fusions. Postoperatively he did not have much pain in the neck, it was all primarily burning into the hands. This calmed down some overnight and change to his forearms. By date of discharge it was just at the wrist and tolerable. He requested discharge home as he had been progressing well with therapy. Status at Discharge Cognitive/behavioral status at discharge: oriented Functional status at discharge: independent ambulation Overall status at discharge: patient is progressing back to baseline Exam Vital Signs (past 8 hours): - 06/14/19 00:50 Temperature 98.0 F Pulse Rate 78 Respiratory Rate 18 Blood Pressure 138/73 Pulse Oximetry 97 Oxygen Delivery Method Room Air Oxygen Flow Rate 0 Const Orientation: alert and oriented x3 Back/Spine/Pelvis Other: Moderate posterior dried drainage on dressing. Dry anteriorly. 5/5 motor both upper extremities except for 4/5 bilateral hide inspector and sorter and intrinsics Discharge Plan Discharge Plan Patient Disposition: Home Discharge comment: Follow-up 1.5 weeks Discharge Med Rec/Prescriptions Prescriptions: New hydrocodone-acetaminophen 5-325 mg Tablet See Rx Instructions .ROUTE .COMPLEX PRN (Reason: Pain, Moderate (4-6)) Qty: 30 RF: 0 hydroxyzine pamoate 25 mg Capsule 25 mg PO Q4HR PRN (Reason: spasms) Qty: 20 RF: 0 methylprednisolone [Medrol (Obed)] 4 mg tablets,dose pack See Rx Instructions .ROUTE .COMPLEX Qty: 21 RF: 0 Continued nifedipine 30 MG tablet extended release 24hr 30 mg PO BEDTIME Qty: 0 RF: 0 lovastatin 40 MG tablet 40 mg PO BEDTIME Qty: 0 RF: 0 lisinopril 10 MG tablet 10 mg PO BEDTIME Qty: 0 RF: 0 aspirin 81 mg Tablet,Delayed Release (Dr/Ec) 81 mg PO DAILY PRN (Reason: Pain) RF: 0 Follow up/Referrals: Zachariah Swenson MD [Primary Care Provider] - Provider Discharge Instructions Diet: Diet as Tolerated Activity: 10 lbs lift Skin/Wound/Dressing Care Report to your healthcare provider any signs of infection, such as:: chills, fever, night sweats, increased pain, unusual drainage and unusual redness Dressing: may change dressing and shower POD#5 Visit Report/Discharge Packet Stand Alone Forms: Surgery Discharge Discharge Data Primary Care Provider: Zachariah Swenson Attending Provider: Dilshad Hammond Admit Date/Time: 06/12/19 05:44 Quality VTE Deep Vein Thrombosis/Pulmonary Embolism Present on Admission: No
--- NOTE | 2019-06-14 07:44 | PM.PNPO.1 ---
Subjective Date Patient Seen: 06/14/19 Time Patient Seen: 07:44 Interval history: Pain is now centered just at his wrists and mostly superficial skin. Fairly constant about a 5 to 6/10. Maybe just slightly worse than yesterday. Overall tolerable. He feels he is doing very well and making progress and independent with mobility. Exam Vital Signs (past 8 hours): - 06/14/19 00:50 Temperature 98.0 F Pulse Rate 78 Respiratory Rate 18 Blood Pressure 138/73 Pulse Oximetry 97 Oxygen Delivery Method Room Air Oxygen Flow Rate 0 Const Orientation: alert and oriented x3 Back/Spine/Pelvis Other: Anterior dressing clean dry intact. Posterior dressing moderate dry drainage. 5/5 motor both upper extremities except for 4/5 bilateral medical language specialist and intrinsics Assessment & Plan Post-op Postoperative Procedures Operation Date: 06/12/19 07:45 Actual Procedures Side Surgeon p C3-4,C4-5,C5-6,C6-7 Anterior discectomy & Ant/Post fusion with bone graft Dilshad Hammond MD he feels he is ready to go home and would like to be discharged. I will send him home with pain medication as well as a Medrol Dosepak to see if this can help more on the pain in the hands. Quality VTE Deep Vein Thrombosis/Pulmonary Embolism Present on Admission: No
--- NOTE | 2019-06-14 08:51 | CM.DPC ---
DCP: continued: Dr. Hammond saw pt this morning and has d/c'd him to the home setting. Met in followup with pt; now moved from 102 to 209. Pt confirms plan for d/c today and says he is very comfortable with same. He does still have the pains in his hands to forearms he says but remains hopeful that this well lessen over time. MILLICENT#2: presented: signed by pt [id number]. Document given to [facility] for processing. Will follow prn until pt leaves.
[2019-06-14] MEDS: DOCUSATE 100 MG CAPSULE PO (09:36)
[2019-06-14] MEDS: CELECOXIB 200 MG CAPSULE PO (09:36)
--- NOTE | 2019-06-14 11:08 | OT.IP.TRT ---
Current Diagnoses Spinal stenosis, cervical region (06/12/19) Surgery Performed Operation Date: 06/12/19 07:45 Actual Procedures p C3-4,C4-5,C5-6,C6-7 Anterior discectomy & Ant/Post fusion with bone graft - Dilshad Hammond MD Occupational Therapy Treatment Note M3 OT- IP Subjective and Pain Start: 06/13/19 15:45 Freq: Status: Active Protocol: Document 06/14/19 11:08 PJM (Rec: 06/14/19 15:53 PJM [id number]) OT- Subjective Occupational Therapy Visit Type Type Treatment Note Visit Start Time 10:50 Visit Stop Time 11:08 Total Visit Minutes 18 Notes Pt's here for education this session. Occupational Therapy Visit Comments Patient Comments 'I am feeling much better today, but my R hand hurts. I think the nerves are waking up . Patient/Caregiver Goals to go home today OT Pain Assessment Pain When Pain Assessed After Treatment Pain Present Pain Present Pain Reported Location hands\arms Intensity 4 Scale Used Numeric (1 - 10) Description Acute Burning M4 OT- IP ADL's Start: 06/13/19 15:45 Freq: Status: Active Protocol: Document 06/14/19 11:08 PJM (Rec: 06/14/19 15:53 PJM [id number]) OT [id number] Comments OT Self-Feeding Comments pt likes red foam built up handle and provided with resource information for obtaining built up handle utensils for home use OT ADL-Grooming Comments OT Grooming Comments pt declined, prefers to complete at home OT ADL-Dressing General Eval Upper Body Dressing Ability Standby Assistance Lower Body Dressing Ability Standby Assistance Comments OT Dressing Comments pt dons pants and socks flat in bed, then rolls to pull pants over hips; provided education re: C spine precautions for this technique OT ADL-Toileting General Evaluation Toileting Ability Standby Assistance Comments OT Toileting Comments by pt report OT ADL-Bathing Devices Bathing Equipment Hand Held Shower Sprayer Shower Chair without Arms Grab Bars Comments OT Bathing Comments pt declines to shower here; will provide SBA at home, recommend long bath sponge M6 OT- IP Functional Cognition Start: 06/13/19 15:45 Freq: Status: Active Protocol: Document 06/14/19 11:08 PJM (Rec: 06/14/19 15:53 PJM [id number]) Cognitive Factors Limiting Selfcare Function Cognitive Ability Level of Alertness Alert Attention Span Ability Capable of Focused Attention Capable of Sustained Attention Ability to Follow Commands Able to Follow One Step Commands Cognitive Comments Cognitive Assessment Comments Pt more alert today with brighter affect. Pt and verbalize understanding of C spine precautions during self care tasks and written information provided to them yesterday. M8 OT- IP Objective Assessments Start: 06/13/19 15:45 Freq: Status: Active Protocol: Document 06/14/19 11:08 PJ (Rec: 06/14/19 15:53 [facility] [id number]) OT Gross Range of Motion Upper Extremity Range of Motion Assessment Right Impaired ROM Impairments R hand composite flexion increased to 75% today with decreased edema noted. Provided written education for PROM and prolonged stretches to R hand for composite finger flexion ( 3 2 min composite flexion stretches). will assist pt PRN and verbalizes understanding. OT Strength Hand It Quality Analyst Strength Right It Quality Analyst Strength (lbs) (lbs) 35 (Norm: 50-102) Left It Quality Analyst Strength (lbs) (lbs) 45 (Norm: 44-95) Comments Strength Comments Provided red theraputty and education re: theraputty exercises for B hand strengthening. OT- Coordination Assessment Comments Coordination Comments Pt using R hand dominantly for self care including eating, writing. Legibility poor per . Provided suggestions re: handwriting exercises. OT-Muscle Tone Assessment Muscle Tone WNL Yes OT Sensation Assessment Edema Edema Present Edema Comments B hand edema decreased today in B hands to min- to trace. Provided written education re : elevation and fist pumping to further decrease edema. M9 OT- IP Assessment and Plan Start: 06/13/19 15:45 Freq: Status: Active Protocol: Document 06/14/19 11:08 PJ (Rec: 06/14/19 15:53 [facility] [id number]) OT Summary Assessment and Plan Potential Rehabilitation Potential Good Summary Progress Towards Goals Safe For Discharge Goals Met Assessment Summary All acute care OT goals achieved for this admission as described above. Pt plans to d/c home today with 24 hr assist from supportive . Recommend out pt hand therapy followup to increase B hand AROM, strength, dexterity, especially in R dominant hand. Frequency of Treatment Frequency Of Treatment Discharge Discharge Recommendations OT Discharge Recommendations Home with / Assist Other Discharge Recommendations out pt hand therapy
--- NOTE | 2019-06-14 11:22 | PC.NURSE ---
Day shift: Pt left unit via WC. Dressing changed per MD instructions. Paperwork signed and all questions answered. Pt has all personal belongs and MD scrips. Pt taken to private car by JADEN Olsen in . Spouse will drive Pt home.
== END 2019-06-14 11:23 | disposition home or self-care (01) | DRG 454 ==
LOC: AC 06:36 → ICU 10:16 → AC 06-13 14:58
PROVIDERS: Admitting Provider Orthopaedic Surgery; PCP Family Medicine; Visit Provider Orthopaedic Surgery
PROC: 0RG20A0 Fusion of 2 or more Cervical Vertebral Joints with Interbody Fusion Device, Anterior Approach, Anterior Column, Open Approach (ICD-10-PCS; principal; 2019-06-12 07:45)
DX: M48.02 Spinal stenosis, cervical region (principal); G95.29 Other cord compression; I10 Essential (primary) hypertension; E78.5 Hyperlipidemia, unspecified; Z98.1 Arthrodesis status
CPT/HCPCS: 72040; 72050; 76000; 87797; 97110; 97116; 97161; 97166; 97530; 97535; C1776; J0131; J0690; J1100; J1170; J2060; J2250; J2405; J2704; J3010; J3410

== ENCOUNTER → 2021-06-01 14:09 | Outpatient (CLI) | payer MEDICARE, SELFPAY ==
[2019-06-12 15:39] VITALS: BMI 27.1
--- NOTE | 2021-06-01 14:11 | DI.RAD.S_ITS ---
PROCEDURE: XR FOOT RT 2V INDICATIONS: Right foot pain following crush injury 3 months ago TECHNIQUE: 3 views of the foot were acquired. COMPARISON: None. FINDINGS: Bones: No acute fracture. 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 Scattered degenerative subchondral sclerosis and spurring. Plantar calcaneal spurs noted. Prominent osteophyte seen at the dorsal aspect of the 1st MTP joint. This raises the possibility of hallux rigidus Soft tissues: Scattered vascular calcifications. IMPRESSION: Extensive degenerative changes as above. No fracture identified. If the patient's pain or other symptoms persist, consider further evaluation with MRI Dictated by: John Valdez M.D. on 06/01/2021 at 15:29 Approved by: John Valdez M.D. on 06/01/2021 at 15:32
[2021-06-01 15:15] LABS: Add Manual Diff / Slide Review NO; Basophils Absolute Auto 0 /uL (0-100); Basophils Percent Auto 0.6 % (0-2); Eosinophils Absolute Auto 0 /uL (0-450); Eosinophils Percent Auto 0.1 % (2-4); Hematocrit 41.9 % (41-53); Hemoglobin 13.7 g/dL (13.5-17.5); Lymphocytes Absolute Auto 1600 /uL (1100-4500); Lymphocytes Percent Auto 37.9 % (25-40); Mean Corpuscular HGB Conc 32.6 % (30-36); Mean Corpuscular Hemoglobin 29.1 PG (26-34); Mean Corpuscular Volume 89.2 fL (80-100); Monocytes Absolute Auto 900 /uL (0-900); Monocytes Percent Auto 21.9 % (3-14); Neutrophils Absolute Auto 1700 /uL (1500-7000); Neutrophils Percent Auto 39.5 % (50-75); Platelet Count 113 X10^3/uL (150-400); Red Cell Distribution Width 16.3 % (11.6-14.8); White Blood Cell Count 4.3 X10^3/uL (4.5-11.0)
[2021-06-01 15:32] LABS: BUN Creatinine Ratio 21.4 (6-22); Blood Urea Nitrogen 15 mg/dL (9-20); Calcium 9.3 mg/dL (8.4-10.2); Carbon Dioxide 24 mmol/L (22-32); Chloride 107 mmol/L (98-107); Estimated Glomerular Filt Rate > 60.0 mL/min (>60); Glucose 96 mg/dL (80-110); HEMOLYSIS < 15 (0-50); Potassium 4.1 mmol/L (3.4-5.1); Sodium 139 mmol/L (137-145)
[2021-06-01 15:58] LABS: Vitamin D 25 Hydroxy (D3) 20.6 ng/mL (30.0-100.0)
[2021-06-01 15:59] LABS: TSH w/ Reflex to FT4 2.18 uIU/mL (0.47-4.68)
[2021-06-01 16:16] LABS: Vitamin B12 665 pg/mL (239-931)
== END ==
PROVIDERS: PCP Student in an Organized Health Care Education/Training Program; Referring Provider Student in an Organized Health Care Education/Training Program; Visit Provider Student in an Organized Health Care Education/Training Program
DX: G62.9 Polyneuropathy, unspecified (principal); I10 Essential (primary) hypertension; E55.9 Vitamin D deficiency, unspecified; M79.671 Pain in right foot
CPT/HCPCS: 36415; 73620; 80048; 82306; 82607; 84443; 85025

== ENCOUNTER → 2021-06-09 15:56 | Outpatient (CLI) | payer MEDICARE, SELFPAY ==
[2019-06-12 15:39] VITALS: BMI 27.1
[2021-06-09 16:41] LABS: Hemoglobin 13.6 g/dL (13.5-17.5)
[2021-06-09 16:49] LABS: Hematocrit 40.7 % (41-53); Mean Corpuscular HGB Conc 33.4 % (30-36); Mean Corpuscular Hemoglobin 29.8 PG (26-34); Mean Corpuscular Volume 89.2 fL (80-100); Platelet Count 116 X10^3/uL (150-400); Red Blood Cell Count 4.56 X10^6/uL (4.5-5.9); Red Cell Distribution Width 16.4 % (11.6-14.8); White Blood Cell Count 5.7 X10^3/uL (4.5-11.0)
[2021-06-09 19:05] LABS: Neutrophils Absolute Manual 2622 /uL (3000-5900); Platelet Estimate Decreased on smear; RBC Morphology Normal Morphology; Total Cells Counted 100
== END ==
PROVIDERS: PCP Student in an Organized Health Care Education/Training Program; Referring Provider Student in an Organized Health Care Education/Training Program; Visit Provider Student in an Organized Health Care Education/Training Program
DX: D72.821 Monocytosis (symptomatic) (principal)
CPT/HCPCS: 36415; 85025

== ENCOUNTER 2022-04-28 10:06 | Emergency (ER) | payer MEDICARE, SELFPAY ==
[2019-06-12 15:39] VITALS: BMI 27.1
[2022-04-28 10:14] VITALS: BP 153/74; PULSE 85; RESP 14; TEMP 36.4; O2SAT 98; BMI 25.7
[2022-04-28 10:15] VITALS: BP 153/74; PULSE 83; O2SAT 97
[2022-04-28 10:30] VITALS: PULSE 75; O2SAT 98
--- NOTE | 2022-04-28 10:33 | ED_ITS ---
HPI - Abdominal Pain General Chief Complaint: Abdominal Pain Stated Complaint: stomach pains sent from [facility] Time Seen by Provider: 04/28/22 10:25 Source: patient Mode of arrival: Ambulatory History of Present Illness HPI narrative: Patient is an 81-year-old male history of hypertension hyperlipidemia presenting today with periumbilical pain ongoing for the last 3 days. He says he was nauseous the 1st night does have pain with still bad but he never vomited. He has not had any fever chills. No diarrhea. He denies any chest pain or s hortness of breath. He takes aspirin and the pain is relieved for just a little bit. He states he just finished antibiotics about a week and half ago for UTI. He denies any painful or frequent urination feels like that infection has cleared. He has mild ongoing back pain is not any worse than normal Related Data Home Medications Medication Instructions Recorded Confirmed aspirin 81 mg tablet,delayed 81 mg PO DAILY PRN Pain 06/04/19 04/28/22 release Previous Rx's Medication Instructions Recorded Parking Permit... #1 ea 06/01/21 clobetasol 0.05 % lotion 1 applic topical BID #118 mL 06/01/21 nifedipine 30 mg tablet,extended 30 mg PO BEDTIME #90 tabs 06/09/21 release 24 hr lisinopril 10 mg tablet 10 mg PO BEDTIME #90 tabs 06/10/21 lovastatin 40 mg tablet 40 mg PO BEDTIME #90 tabs 06/11/21 Allergies Allergy/AdvReac Type Severity Reaction Status Date / Time No Known Drug Allergies Allergy Verified 04/28/22 10:17 Review of Systems Review of Systems Narrative: GENERAL: Denies chills, fatigue, malaise, fever, sweats, travel HEENT: Denies sinus pain, ear pain, sore throat, difficulty swallowing, neck pain RESPIRATORY: Denies dyspnea, cough, wheezing, hemoptysis, sputum. CARDIOVASCULAR: Denies chest pain, palpitations, orthopnea, edema GASTROINTESTINAL: See HPI : Denies dysuria, frequency, incontinence, hematuria, urinary retention, flank pain. MUSCULOSKELETAL: Denies weakness, joint pain, or bony pain SKIN: No rash, no erythema, no pruritus NEUROLOGIC: Denies weakness, dizziness, headache, numbness, change in speech, confusion PSYCHIATRIC: No concerning psychosocial issues. 12 point review of systems is negative except for those stated above and HPI Patient History Medical History BPH with obstruction/lower urinary tract symptoms Bursitis Essential tremor Former smoker Hearing loss History of thromboembolism HLD (hyperlipidemia) HTN (hypertension) Insomnia Neuropathy Pulmonary embolism TIA (transient ischemic attack) Surgical History History of colonoscopy Hx of hernia repair Hx of transurethral resection of prostate S/P lumbar fusion (08/02/17) Social History household members: spouse Smoking Status: Former smoker alcohol intake: current Smoking Status: Former smoker alcohol intake frequency: 0-2 drinks per day Substance Use Type: does not use Exam Initial Vital Signs Initial Vital Signs: Vital Signs Temperature 97.6 F 04/28/22 10:14 Pulse Rate 85 04/28/22 10:14 Respiratory Rate 14 04/28/22 10:14 Blood Pressure 153/74 H 04/28/22 10:14 Pulse Oximetry 98 04/28/22 10:14 Oxygen Delivery Method 04/28/22 10:14 GENERAL: Alert well-appearing 81-year-old male no significant distress HEENT: Head atraumatic,EOMI, pupils reactive, face symmetric, moist mucous membranes CARDIOVASCULAR: Regular rate and rhythm without murmurs, rubs or gallops. RESPIRATORY: Breath sounds equal bilaterally, no wheezes rales or rhonchi. ABDOMEN: Soft, tender periumbilical area mild left lower quadrant pain was significant right lower quadrant pain no guarding no rebound negative Laura sign : No CVA tenderness EXTREMITIES: Normal range of motion, no clubbing or edema. Neurovascularly int act NEUROLOGICAL: Alert and oriented x4.Normal gait and speech. SKIN: Warm, dry, no laceration, no petechiae, no rashes or lesions. Course Orders Ordered: ED Orders 04/28/22 10:18 Complete Blood Count AUTO DIFF Stat Comprehensive Metabolic Panel Stat Lipase Stat 04/28/22 10:41 CT abdomen pelvis wo con Stat 04/28/22 11:24 Urine Microscopic Stat Discontinued Medications Ketorolac Tromethamine (Ketorolac 30 Mg/Ml Vial) 30 mg IV NOW ONE Stop: 04/28/22 10:42 Last Admin: 04/28/22 11:05 Dose: 30 mg Documented By: SARA Vital Signs Vital signs: Vital Signs - 8 hr 04/28/22 13:05 Pulse Rate 77 Respiratory Rate 18 Blood Pressure 157/79 H Pulse Oximetry 96 Oxygen Delivery Method Room Air MDM - Abdominal Pain Lab Data Result diagrams: 04/28/22 10:18 04/28/22 10:18 Labs: Lab Results 04/28/22 04/28/22 04/28/22 Range/Units 10:18 10:18 11:24 WBC 7.2 (4.5-11.0) X10^3/uL RBC 5.20 (4.5-5.9) X10^6/uL Hgb 14.9 (13.5-17.5) g/dL Hct 44.1 (41-53) % MCV 84.7 (80-100) fL MCH 28.7 (26-34) PG MCHC 33.9 (30-36) % RDW 17.3 H (11.6-14.8) % Plt Count 137 L (150-400) X10^3/uL Neut % (Auto) 50.9 (50-75) % Lymph % (Auto) 22.1 L (25-40) % [place] % (Auto) 26.3 H (3-14) % Eos % (Auto) 0.2 L (2-4) % Baso % (Auto) 0.5 (0-2) % Neut # (Auto) 3700 (5775-6811) /uL Lymph # (Auto) 1600 (9686-0833) /uL [place] # (Auto) 1900 H (0-900) /uL Eos # (Auto) 0 (0-450) /uL Baso # (Auto) 0 (0-100) /uL Sodium 139 (137-145) mmol/L Potassium 3.9 (3.4-5.1) mmol/L Chloride 105 (98-107) mmol/L Carbon Dioxide 24 (22-32) mmol/L BUN 15 (9-20) mg/dL Creatinine 0.89 (0.66-1.25) mg/dL Estimated GFR > 60 (>60) mL/min BUN/Creatinine Ratio 16.9 (6-22) Glucose 108 (80-110) mg/dL Calcium 9.0 (8.4-10.2) mg/dL Total Bilirubin 0.9 (0.2-1.3) mg/dL AST 37 (17-59) IU/L ALT 20 (<50) IU/L Alkaline Phosphatase 73 (38-126) U/L Total Protein 8.5 H (6.3-8.2) g/dL Albumin 4.3 (3.5-5.0) g/dL Globulin 4.2 H (1.7-4.1) g/dL Albumin/Globulin Ratio 1.0 (1.0-2.8) Lipase 62 (23-300) U/L Urine RBC 1-5/hpf (0-5/HPF) Urine WBC 1-5/hpf (0-5/HPF) Ur Squamous Epith Cells 0-1 /hpf (0-5/HPF) Urine Bacteria Few (2-10) H (None) Urine Mucus 1+ H (Negative) Ur Culture Indicated? Cult not indicated Point of care testing: Urine Dip Bedside Urine Bilirubin - Negative Bedside Urine Ketone - Negative Urine Specific [place] 1.015 Bedside Urine Occult Blood + Bedside Urine pH 6 Bedside Urine Protein +/- 15 Bedside Urine Urobilinogen - Negative Bedside Urine Nitrite - Negative Bedside Urine Leukocytes - Negative Esterase Imaging Data CT scan - abdomen/pelvis: Radiologist's Impression: CT Scan Report Signed Patient: Tima Bar MR#: [id number] : 1940 Acct:[id number] Age/Sex: 81 / M Date of Service: 04/28/22 Loc: ED Accession Number: [id number] ?? Procedure: CT abdomen pelvis wo con Ordering Provider: Karissa Mckeon D.O. PROCEDURE:? CT ABDOMEN PELVIS WO CON ? INDICATIONS:? ab pain perumbilical and llq ? TECHNIQUE:? Axial sections were acquired from the lung bases to the pubic symphysis.? Coronal and sagittal reformats were performed.? For radiation dose reduction, the following was used: ?automated exposure control, adjustment of mA and/or kV according to patient size.? ? COMPARISON:? None. ? FINDINGS:? Image quality:? Excellent.? ? Lung bases:? Unremarkable.? Tiny hiatal hernia.? Heart:? Normal size.? Moderate coronary artery calcification.? Trace pericardial effusion. ? URINARY: Right Kidney: ? A couple of 2 mm stones are seen in right kidney.? No hydronephrosis.? Right Ureter:? No hydroureter.? ? Left Kidney:? Mild left hydronephrosis and perinephric stranding.? Probable 1 mm stone in mid zone. Left Ureter:? Mild left hydroureter.? No ureteral stones.? Low-density cortical nodules and aseptic nodule are likely cysts. ? Bladder:? There is a 2 mm stone within the bladder just beyond the left UVJ, consistent with a recently passed stone.? Mild anterior wall thickening may be secondary to inadequate distention. ? ABDOMEN: Liver:? Multiple low-density nodules are present in liver, most likely hepatic cysts.? Some lesions are too small to further characterize.? ? Gallbladder:? There are gallstones.? ? Biliary ducts:? Unremarkable.? ? Pancreas:? Unremarkable.? ? Spleen:? Normal in size.? Multiple calcified granulomas are present.? ? Adrenal Glands:? Bilateral adrenal thickening.? ? ? Stomach and Bowel:? Stomach, small bowel loops, and colon are unremarkable.? There is a large amount of stool in colon.? Diverticulosis without diverticulitis. Peritoneum:? No abnormal intraperitoneal fluid.? No free air.? ? Ventral Wall: ? No hernia.? Abdominal Nodes:? No enlarged retroperitoneal or mesenteric lymph nodes.? Vessels:? Aorta and inferior vena cava are normal in size.? Moderate atherosc lerotic calcifications. ? PELVIS: Pelvic Organs:? Prostate is enlarged with foci of calcifications.? Lucency in prostatic urethra suspicious for TURP.? ? Pelvic Nodes: Unremarkable. Miscellaneous:? Small fat containing left inguinal hernia. ? ? ? Bones:? Mild chronic compression fracture involving the superior endplate of L2.? 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 ? IMPRESSION:? ? 1. A 2 mm just passed stone in the urinary bladder just beyond the left UVJ.? There is mild left hydronephrosis and hydroureter. 2. Small bilateral nonobstructive renal calculi. 3. Enlarged prostate.? Suspect TURP. 4. Cholelithiasis. 5. Multiple old calcified granulomas in spleen. 6. Hepatic cysts and right renal cysts. 7. Diverticulosis without diverticulitis. 8. Mild chronic compression fracture of L2. ? Dictated by: Rogelio Pruett M.D. on 04/28/2022 at 11:54 ? ? Approved by: Rogelio Pruett M.D. on 04/28/2022 at 12:03? MDM Narrative Medical decision making narrative: Patient is overall feeling significantly better after Toradol. CT reveals that he likely had a recently passed left ureteral stone which is now bladder. Upon re-questioning asked if he had any new no back or flank pain. His reports yes and he reports no. At this time no need for any further and antibiotic. He really does not need anything more for pain at this time. Recommend [id number] Tylenol ibuprofen. At this time I do not suspect dissection or aneurysm although they were considered. Discharge Plan Departure Patient Disposition: Home Clinical Impression: Kidney stones Instructions: DI for Kidney Stones Activity Restrictions/Additional Instructions: *You have been diagnosed with kidney stone *What to do: It appears that you recently just passed a kidney stone on the left side. It was likely causing your pain. Urinary tract infection has cleared *Continue to take medications as directed Ibuprofen 600 mg every 6-8 hours if needed for xehy-lh-[id number] pain Tylenol 650 mg every 4-6 hours if needed for hdxy-xr-[id number] pain *Follow up with your primary care provider in 2-3 days or call [phone] *Return to ER if you should have increasing pain, bloody urine, persistent vomiting or or any new, worsening or concerning symptoms Prescriptions: No Action nifedipine 30 mg tablet extended release 24hr 30 mg PO BEDTIME Qty: 90 3RF lisinopril 10 mg tablet 10 mg PO BEDTIME Qty: 90 3RF lovastatin 40 mg tablet 40 mg PO BEDTIME Qty: 90 3RF clobetasol 0.05 % lotion 1 applic topical BID Qty: 118 0RF (DME) Parking Permit... See Rx Instructions .ROUTE .MEDSUPPLY Qty: 1 0RF Rx Instructions: As directed aspirin 81 mg Tablet,Delayed Release (Dr/Ec) 81 mg PO DAILY PRN (Reason: Pain) Referrals: Tima Ruiz MD [Primary Care Provider] - Visit Report Forms: Patient Portal/API
--- NOTE | 2022-04-28 10:41 | DI.CT.S_ITS ---
PROCEDURE: CT ABDOMEN PELVIS WO CON INDICATIONS: ab pain perumbilical and llq TECHNIQUE: Axial sections were acquired from the lung bases to the pubic symphysis. Coronal and sagittal reformats were performed. For radiation dose reduction, the following was used: automated exposure control, adjustment of mA and/or kV according to patient size. COMPARISON: None. FINDINGS: Image quality: Excellent. Lung bases: Unremarkable. Tiny hiatal hernia. Heart: Normal size. Moderate coronary artery calcification. Trace pericardial effusion. URINARY: Right Kidney: A couple of 2 mm stones are seen in right kidney. No hydronephrosis. Right Ureter: No hydroureter. Left Kidney: Mild left hydronephrosis and perinephric stranding. Probable 1 mm stone in mid zone. Left Ureter: Mild left hydroureter. No ureteral stones. Low-density cortical nodules and aseptic nodule are likely cysts. Bladder: There is a 2 mm stone within the bladder just beyond the left UVJ, consistent with a recently passed stone. Mild anterior wall thickening may be secondary to inadequate distention. ABDOMEN: Liver: Multiple low-density nodules are present in liver, most likely hepatic cysts. Some lesions are too small to further characterize. Gallbladder: There are gallstones. Biliary ducts: Unremarkable. Pancreas: Unremarkable. Spleen: Normal in size. Multiple calcified granulomas are present. Adrenal Glands: Bilateral adrenal thickening. Stomach and Bowel: Stomach, small bowel loops, and colon are unremarkable. There is a large amount of stool in colon. Diverticulosis without diverticulitis. Peritoneum: No abnormal intraperitoneal fluid. No free air. Ventral Wall: No hernia. Abdominal Nodes: No enlarged retroperitoneal or mesenteric lymph nodes. Vessels: Aorta and inferior vena cava are normal in size. Moderate atherosclerotic calcifications. PELVIS: Pelvic Organs: Prostate is enlarged with foci of calcifications. Lucency in prostatic urethra suspicious for TURP. Pelvic Nodes: Unremarkable. Miscellaneous: Small fat containing left inguinal hernia. Bones: Mild chronic compression fracture involving the superior endplate of L2. 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 IMPRESSION: 1. A 2 mm just passed stone in the urinary bladder just beyond the left UVJ. There is mild left hydronephrosis and hydroureter. 2. Small bilateral nonobstructive renal calculi. 3. Enlarged prostate. Suspect TURP. 4. Cholelithiasis. 5. Multiple old calcified granulomas in spleen. 6. Hepatic cysts and right renal cysts. 7. Diverticulosis without diverticulitis. 8. Mild chronic compression fracture of L2. Dictated by: Rogelio Pruett M.D. on 04/28/2022 at 11:54 Approved by: Rogelio Pruett M.D. on 04/28/2022 at 12:03
[2022-04-28 10:52] VITALS: BP 172/79; PULSE 77; O2SAT 98
[2022-04-28 10:54] LABS: Alanine Aminotransferase 20 IU/L (<50); Albumin 4.3 g/dL (3.5-5.0); Alkaline Phosphatase 73 U/L (38-126); Aspartate Aminotransferase 37 IU/L (17-59); BUN Creatinine Ratio 16.9 (6-22); Bilirubin Total 0.9 mg/dL (0.2-1.3); Blood Urea Nitrogen 15 mg/dL (9-20); Carbon Dioxide 24 mmol/L (22-32); Chloride 105 mmol/L (98-107); Estimated Glomerular Filt Rate > 60 mL/min (>60); Globulin 4.2 g/dL (1.7-4.1); Glucose 108 mg/dL (80-110); HEMOLYSIS 15 (0-50); Lipase 62 U/L (23-300); Potassium 3.9 mmol/L (3.4-5.1); Sodium 139 mmol/L (137-145); Total Protein 8.5 g/dL (6.3-8.2)
[2022-04-28 10:59] LABS: Add Manual Diff / Slide Review NO; Basophils Absolute Auto 0 /uL (0-100); Basophils Percent Auto 0.5 % (0-2); Eosinophils Absolute Auto 0 /uL (0-450); Eosinophils Percent Auto 0.2 % (2-4); Hematocrit 44.1 % (41-53); Hemoglobin 14.9 g/dL (13.5-17.5); Lymphocytes Absolute Auto 1600 /uL (1100-4500); Lymphocytes Percent Auto 22.1 % (25-40); Mean Corpuscular HGB Conc 33.9 % (30-36); Mean Corpuscular Hemoglobin 28.7 PG (26-34); Mean Corpuscular Volume 84.7 fL (80-100); Monocytes Absolute Auto 1900 /uL (0-900); Monocytes Percent Auto 26.3 % (3-14); Neutrophils Absolute Auto 3700 /uL (1500-7000); Neutrophils Percent Auto 50.9 % (50-75); Platelet Count 137 X10^3/uL (150-400); Red Cell Distribution Width 17.3 % (11.6-14.8); White Blood Cell Count 7.2 X10^3/uL (4.5-11.0)
[2022-04-28 11:00] VITALS: BP 161/81; PULSE 75; O2SAT 98
[2022-04-28] MEDS: KETOROLAC 30 MG/ML VIAL IV (11:05)
[2022-04-28 12:10] LABS: Bacteria Urine Few (2-10); Culture Indicated Urine Cult Not Indicated; Mucus Urine 1+ (Negative); RBC Urine 1-5/HPF (0-5/HPF); Squamous Epithelial Cell Urine 0-1 /HPF (0-5/HPF); WBC Urine 1-5/HPF (0-5/HPF)
[2022-04-28 13:05] VITALS: BP 157/79; PULSE 77; RESP 18; O2SAT 96
== END 2022-04-28 13:04 | disposition home or self-care (01) ==
PROVIDERS: Emergency Provider Emergency Medicine; PCP Student in an Organized Health Care Education/Training Program
DX: N20.0 Calculus of kidney (principal)
CPT/HCPCS: 36415; 74176; 80053; 81003; 81015; 83690; 85025; 96374; 99284; J1885